=== PATIENT | female | born 1980 | race African-American/Black ===

== ENCOUNTER 2017-01-28 22:09 | Emergency (ER) | payer MEDICARE, OTHER ==
[~2017-01-28] VITALS: Ht 167.6 cm; Wt 70.0 kg
[2017-01-29 04:20] LABS: BASOPHILS % 0.3 % (0.0-2.0); EOSINOPHILS % 0.2 % (0.0-5.0); HEMATOCRIT. 35.8 % (36.0-48.0); LYMPHOCYTES % 16.8 % (20.0-50.0); MEAN CORPUSCULAR HEMOGLOBIN 30.3 pg (28.0-32.0); MEAN CORPUSCULAR HGB CONC 33.6 g/dL (31.0-37.0); MEAN CORPUSCULAR VOLUME 90.3 fL (81.0-99.0); MEAN PLATELET VOLUME 8.9 fl (7.4-10.4); MONOCYTES % 4.8 % (2.0-8.0); NEUTROPHILS % 77.9 % (40.0-76.0); PLATELET 191 x1000/uL (130-400); RED BLOOD CELL COUNT 3.97 mill/uL (4.2-5.4); RED CELL DISTRIBUTION WIDTH 13.9 % (11.6-14.6); WHITE BLOOD COUNT 8.7 x1000/uL (4.5-11.0)
[2017-01-29 04:25] LABS: INR 1.1; PROTHROMBIN TIME 11.6 sec
[2017-01-29 04:35] LABS: ALANINE AMINOTRANSFERASE 14 IU/L (13-61); ALBUMIN 3.6 g/dL (3.4-5.0); ANION GAP 13; CARBON DIOXIDE 23 mEq/L (21-32); CHLORIDE 106 mEq/L (98-107); INDEX HEMOLYSI 1 (1-3); INDEX ICTERIC 1 (1-4); INDEX LIPEMIC 1 (1-3); UREA NITROGEN BLOOD 9 mg/dL (7-21); eGFR > 60 mL/min (>60)
[2017-01-29 04:45] LABS: CLARITY URINE CLOUDY (CLEAR); COLOR URINE YELLOW (YELLOW); GLUCOSE URINE NEGATIVE (NEGATIVE); KETONES URINE 4+ (NEGATIVE); LEUKOCYTE ESTERASE URINE NEGATIVE (NEGATIVE); NITRITE URINE NEGATIVE (NEGATIVE); OCCULT BLOOD URINE 3+ (NEGATIVE); PH URINE 5.5 (4.5-8.0); PROTEIN URINE TRACE (NEGATIVE); SPECIFIC GRAVITY URINE 1.031 (1.005-1.030)
[2017-01-29 04:45] LABS: B-HCG QUANTITATIVE 28359 mIU/mL (<3)
[2017-01-29 05:18] LABS: SQUAMOUS EPITHELIAL CELL URINE 2+ /lpf (RARE/1+)
[2017-01-29 05:27] LABS: RBC URINE 0-2 /hpf (0-2)
[2017-01-29 05:32] LABS: BACTERIA URINE 1+
[2017-01-29 10:29] VITALS: BP 118/71
== END 2017-01-29 10:30 | disposition home or self-care (01) ==
LOC: ER 01-29 04:02
DX: O20.0 Threatened abortion (principal); O34.11 Maternal care for benign tumor of corpus uteri, first trimester; D25.1 Intramural leiomyoma of uterus; D25.2 Subserosal leiomyoma of uterus; Z3A.01 Less than 8 weeks gestation of pregnancy
CPT/HCPCS: 36415; 76801; 80053; 81001; 84702; 85025; 85610; 86850; 86900; 87086; 99285

== ENCOUNTER 2017-03-17 20:28 | Emergency (ER) | payer OTHER, MEDICAID ==
[~2017-03-17] VITALS: Ht 170.2 cm; Wt 48.0 kg
[2017-03-17] MEDS ORDERED: SODIUM CHLORIDE 0.9% 1,000 ML IV ONE (21:21)
[2017-03-17 21:49] LABS: CHLORIDE 103 mEq/L (98-107)
[2017-03-17 21:54] LABS: PARTIAL THROMBOPLASTIN TIME 30.5 sec (24.0-34.0); PROTHROMBIN TIME 10.6 sec
[2017-03-17 21:58] LABS: CARBON DIOXIDE 22 mEq/L (21-32)
[2017-03-17 21:59] LABS: BASOPHILS % 0.3 % (0.0-2.0); EOSINOPHILS % 0.2 % (0.0-5.0); HEMATOCRIT. 35.5 % (36.0-48.0); LYMPHOCYTES % 12.6 % (20.0-50.0); MEAN CORPUSCULAR HEMOGLOBIN 30.7 pg (28.0-32.0); MEAN CORPUSCULAR VOLUME 90.6 fL (81.0-99.0); MEAN PLATELET VOLUME 9.5 fl (7.4-10.4); MONOCYTES % 6.2 % (2.0-8.0); NEUTROPHILS % 80.7 % (40.0-76.0); PLATELET 220 x1000/uL (130-400); RED BLOOD CELL COUNT 3.92 mill/uL (4.2-5.4)
[2017-03-17 22:09] LABS: CLARITY URINE CLEAR (CLEAR); COLOR URINE YELLOW (YELLOW); GLUCOSE URINE NEGATIVE (NEGATIVE); KETONES URINE TRACE (NEGATIVE); LEUKOCYTE ESTERASE URINE NEGATIVE (NEGATIVE); NITRITE URINE NEGATIVE (NEGATIVE); OCCULT BLOOD URINE NEGATIVE (NEGATIVE); PH URINE 6.5 (4.5-8.0); PROTEIN URINE NEGATIVE (NEGATIVE); SPECIFIC GRAVITY URINE 1.026 (1.005-1.030)
[2017-03-17 22:12] LABS: B-HCG QUANTITATIVE 87526 mIU/mL (<3)
[2017-03-17] MEDS ORDERED: ENOXAPARIN 80MG/0.8ML SYR SUBCUT ONE (23:15)
[2017-03-18 00:21] VITALS: BP 119/72
[2017-03-18] MEDS ORDERED: ACETAMINOPHEN 325MG TABLET PO ONE (01:15)
== END 2017-03-18 01:50 | disposition home or self-care (01) ==
LOC: ER 20:47
DX: O26.892 Other specified pregnancy related conditions, second trimester (principal); O99.342 Other mental disorders complicating pregnancy, second trimester; Z3A.13 13 weeks gestation of pregnancy; R10.2 Pelvic and perineal pain; F41.9 Anxiety disorder, unspecified; R10.13 Epigastric pain; Z88.1 Allergy status to other antibiotic agents; Z88.2 Allergy status to sulfonamides; Z86.718 Personal history of other venous thrombosis and embolism
CPT/HCPCS: 36415; 76705; 76801; 80053; 81003; 83690; 84702; 85025; 85610; 85730; 86850; 86900; 86901; 87086; 93970; 96360; 96361; 96372; 99285; J1650; J7030

== ENCOUNTER 2017-07-15 17:22 | Observation (INO) | payer OTHER, MEDICAID ==
[~2017-07-15] VITALS: Ht 167.6 cm; Wt 77.1 kg
[2017-07-15] MEDS ORDERED: LACTATED RINGERS 1,000 ML IV SCH (17:45)
[2017-07-15] MEDS ORDERED: BETAMETHASONE ACET/BETAMET 30 MG/5 ML VIAL IM SCH (18:00)
[2017-07-15 18:17] LABS: BASOPHILS % 0.3 % (0.0-2.0); EOSINOPHILS % 0.2 % (0.0-5.0); HEMATOCRIT. 30.3 % (36.0-48.0); HEMOGLOBIN. 10.3 g/dL (12.0-16.0); MEAN CORPUSCULAR HEMOGLOBIN 30.5 pg (28.0-32.0); MEAN CORPUSCULAR VOLUME 90.2 fL (81.0-99.0); MEAN PLATELET VOLUME 8.6 fl (7.4-10.4); MONOCYTES % 8.2 % (2.0-8.0); NEUTROPHILS % 82.3 % (40.0-76.0); PLATELET 233 x1000/uL (130-400); RED BLOOD CELL COUNT 3.36 mill/uL (4.2-5.4); RED CELL DISTRIBUTION WIDTH 14.1 % (11.6-14.6)
[2017-07-15 18:25] LABS: PARTIAL THROMBOPLASTIN TIME 29.1 sec (23.4-31.0); PROTHROMBIN TIME 10.5 sec (9.4-11.6)
[2017-07-15] MEDS: MAGNESIUM 20 G PREMIX (L & D) 500 ML IV SCH (18:26)
[2017-07-16 00:39] LABS: *AMPHETAMINES SCREEN URINE NEGATIVE (NEGATIVE); *BARBITURATES SCREEN URINE NEGATIVE (NEGATIVE); *BENZODIAZEPINES SCREEN URINE NEGATIVE (NEGATIVE); *COCAINE SCREEN URINE NEGATIVE (NEGATIVE); CANNABINOID URINE SCREEN NEGATIVE (NEGATIVE); METHADONE URINE SCREEN NEGATIVE (NEGATIVE); OPIATES URINE SCREEN NEGATIVE (NEGATIVE); PHENCYCLIDINE URINE SCREEN NEGATIVE (NEGATIVE)
[2017-07-16] MEDS: MAGNESIUM 20 G PREMIX (L & D) 500 ML IV SCH (02:37)
[2017-07-16] MEDS ORDERED: ENOXAPARIN 80MG/0.8ML SYR SUBCUT SCH (03:00)
[2017-07-16] MEDS ORDERED: BUTORPHANOL TARTRATE 2 MG/ML VIAL IM PRN ×2 (03:00)
[2017-07-16 03:05] VITALS: BP 106/74
[2017-07-16] MEDS ORDERED: ONDANSETRON HCL 4MG/2ML VIAL IM NR (05:36)
== END 2017-07-16 07:15 | disposition short-term general hospital (02) ==
LOC: INTOOBSV 17:22 → L&D 17:22
PROVIDERS: ADMIT Obstetrics & Gynecology; ATTEND Obstetrics & Gynecology
DX: O34.13 Maternal care for benign tumor of corpus uteri, third trimester (principal); O99.343 Other mental disorders complicating pregnancy, third trimester; F32.9 Major depressive disorder, single episode, unspecified; Z3A.30 30 weeks gestation of pregnancy; Z79.899 Other long term (current) drug therapy
CPT/HCPCS: 36415; 76805; 76818; 80305; 83735; 85025; 85610; 85730; 96365; 96366; 96372; 96375; 99281; G0378; J0595; J0702; J1650; J2405; J3475; J7120; 59412; 96360; 96361; A4315

== ENCOUNTER 2017-08-10 13:32 | Observation (INO) | payer OTHER ==
[~2017-08-10] VITALS: Ht 167.6 cm; Wt 77.1 kg
[2017-08-10] MEDS ORDERED: ENOX300V SQ (13:49)
== END 2017-08-10 15:20 | disposition home or self-care (01) ==
LOC: L&D 13:32
PROVIDERS: ADMIT Specialist; ATTEND Specialist
DX: O36.8130 Decreased fetal movements, third trimester, not applicable or unspecified (principal); Z3A.33 33 weeks gestation of pregnancy
CPT/HCPCS: 76815; 76818; 99281; G0378